=== PATIENT | male | born 1990 | race American Indian/Alaskan Native ===

== ENCOUNTER 2019-05-04 22:33 | Emergency (ER) | payer SELFPAY ==
[2019-05-04 23:49] LABS: Basophils % (Auto) 0.3 % (0.0-1.8); Eosinophils % (Auto) 0.1 % (0.0-4.3); Hematocrit 43.4 % (35.5-45.6); Hemoglobin 14.8 gm/dl (11.8-15.2); Lymphocytes # (Auto) 1.9 K/mm3 (1.2-5.4); Lymphocytes % (Auto) 24.6 % (13.4-35.0); Mean Corpuscular HGB Conc 34 % (32-34); Mean Corpuscular Volume 84 fl (84-94); Monocytes # (Auto) 0.7 K/mm3 (0.0-0.8); Monocytes % (Auto) 9.3 % (0.0-7.3); Platelet Count 231 K/mm3 (140-440); Red Blood Count 5.14 M/mm3 (3.65-5.03); Red Cell Distribution Width 14.5 % (13.2-15.2)
--- NOTE | 2019-05-05 00:03 | Emergency Department Report ---
ED Abdominal Pain HPI - General Chief Complaint: Abdominal Pain Stated Complaint: LOWER LEFT ABDOMINAL PAIN Time Seen by Provider: 05/04/19 23:58 Source: patient Mode of arrival: Ambulatory Limitations: No Limitations - History of Present Illness Initial Comments: Patient is a 29-year-old male that presents to the emergency room with left lower quadrant pain 2 days and nausea vomiting. Patient states she is able to tolerate by mouth fluids but not foods. Patient states his symptoms going on for 2 days. Patient states the left lower quadrant pain is worsening. Patient denies fever and chills. Patient states his pain is not radiating. Patient states his pain is a 7 out of 10. Patient states his pain is better with rest. Patient states his pain is worse with vomiting and eating. MD Complaint: abdominal pain -: Sudden, days(s) (2) Location: LLQ Radiation: none Migration to: no migration Severity: moderate Severity scale (0 -10): 7 Quality: aching Consistency: constant Improves With: rest Worsens With: vomiting, movement Associated Symptoms: nausea, vomiting. denies: diarrhea, fever, chills, constipation, dysuria, hematemesis, hematochezia, melena, hematuria, anorexia, syncope - Related Data Previous Rx's Medication Instructions Recorded Last Taken Type Ciprofloxacin HCl [Ciprofloxacin 500 mg PO Q12HR 10 Days #20 tab 05/05/19 Unknown Rx TAB] Ondansetron [Zofran Odt] 4 mg PO Q8HR PRN #15 tab.rapdis 05/05/19 Unknown Rx metroNIDAZOLE [Flagyl] 500 mg PO Q12HR 10 Days #20 tab 05/05/19 Unknown Rx Allergies Allergy/AdvReac Type Severity Reaction Status Date / Time No Known Allergies Allergy Unverified 05/04/19 23:27 ED Review of Systems ROS: Stated complaint: LOWER LEFT ABDOMINAL PAIN Other details as noted in HPI Constitutional: denies: chills, fever Eyes: denies: eye pain, eye discharge, vision change ENT: denies: ear pain, throat pain Respiratory: denies: cough, shortness of breath, wheezing Cardiovascular: denies: chest pain, palpitations Endocrine: no symptoms reported Gastrointestinal: abdominal pain, nausea, vomiting. denies: diarrhea, constipation, hematemesis, melena, hematochezia Genitourinary: denies: urgency, dysuria Musculoskeletal: denies: back pain, joint swelling, arthralgia Skin: denies: rash, lesions Neurological: denies: headache, weakness, paresthesias Psychiatric: denies: anxiety, depression Hematological/Lymphatic: denies: easy bleeding, easy bruising ED Past Medical Hx - Past Medical History Previous Medical History?: No - Surgical History Past Surgical History?: Yes Additional Surgical History: Right Abdominal hernia, Right arm - Family History Family history: no significant - Social History Smoking Status: Never Smoker Substance Use Type: None - Medications Home Medications: Home Medications Medication Instructions Recorded Confirmed Last Taken Type Ciprofloxacin HCl [Ciprofloxacin 500 mg PO Q12HR 10 Days #20 tab 05/05/19 Unknown Rx TAB] Ondansetron [Zofran Odt] 4 mg PO Q8HR PRN #15 tab.rapdis 05/05/19 Unknown Rx metroNIDAZOLE [Flagyl] 500 mg PO Q12HR 10 Days #20 tab 05/05/19 Unknown Rx ED Physical Exam - General Limitations: No Limitations General appearance: alert, in no apparent distress - Head Head exam: Present: atraumatic, normocephalic - Eye Eye exam: Present: normal appearance - ENT ENT exam: Present: mucous membranes moist - Neck Neck exam: Present: normal inspection - Respiratory Respiratory exam: Present: normal lung sounds bilaterally. Absent: respiratory distress - Cardiovascular Cardiovascular Exam: Present: regular rate, normal rhythm. Absent: systolic murmur, diastolic murmur, rubs, gallop - GI/Abdominal GI/Abdominal exam: Present: soft, tenderness (left lower quadrant tenderness), normal bowel sounds - Rectal Rectal exam: Present: deferred - Extremities Exam Extremities exam: Present: normal inspection - Back Exam Back exam: Present: normal inspection - Neurological Exam Neurological exam: Present: alert, oriented X3 - Psychiatric Psychiatric exam: Present: normal affect, normal mood - Skin Skin exam: Present: warm, dry, intact, normal color. Absent: rash ED Course Vital Signs 05/04/19 05/05/19 05/05/19 22:39 00:15 02:56 Temperature 98.6 F 98.9 F 98 F Pulse Rate 95 H 75 69 Respiratory 18 16 16 Rate Blood Pressure 114/74 Blood Pressure 128/78 102/59 [Left] O2 Sat by Pulse 98 100 100 Oximetry - Reevaluation(s) Reevaluation #1: Discussed all results with patient. Patient is stable for discharge. Patient will be discharged home. Patient agrees to plan of care. Patient given discharge instructions. Patient voiced understanding of discharge instructions. 05/05/19 02:56 Patient tolerated by mouth challenge 05/05/19 03:19 ED Medical Decision Making - Lab Data Result diagrams: 05/04/19 23:36 05/04/19 23:38 - Radiology Data Radiology results: report reviewed PROCEDURE: CT abdomen and pelvis without contrast. TECHNIQUE: Computerized axial tomography of the abdomen and pelvis was performed without intravenous contrast. This study is performed without intravascular contrast material and its sensitivity for abdominal and pelvic pathology, including neoplasms, inflammation, abscess, free fluid, thrombosis, arterial dissection and infarction, is reduced compared with a contrast enhanced study. CT DOSE LENGTH PRODUCT: 523.7 mGycm HISTORY: Abdominal pain. COMPARISONS: None. FINDINGS: The lung bases are clear. There are no pleural effusions. The heart size is normal. The liver, pancreas and spleen are grossly normal. The gallbladder is present. There is no biliary dilatation. The adrenal glands are not enlarged. Both kidneys appear normal in size and configuration. There are no renal calcifications. There is no hydronephrosis. The abdominal aorta has a normal caliber. There is no retroperitoneal adenopathy. The unopacified gastrointestinal tract is unremarkable. A normal appendix is visible. The bladder, seminal vesicles and prostate appear normal. The regional skeleton appears intact. IMPRESSION: Normal unenhanced studies of the abdomen and pelvis. - Medical Decision Making Patient is a 29-year-old male that presents emergency room with complaints of left lower quadrant pain and nausea and vomiting. Patient finding consistent with possible diverticulitis and gastroenteritis. Patient's CT is negative. Patient will be treated for diverticulitis since the patient is so tender in his left lower quadrant. Patient has been stable in the ER. Patient has not had any nausea vomiting in the ER and the patient tolerated a by mouth challenge.. Patient given antibiotics and Zofran. Patient will be discharged home. Patient given discharge instructions. Patient's labs unremarkable. Patient's CT negative. - Differential Diagnosis diverticulitis. Gastroenteritis. Nausea and vomiting. Abdominal pain. Critical care attestation.: If time is entered above; I have spent that time in minutes in the direct care of this critically ill patient, excluding procedure time. ED Disposition Clinical Impression: Left lower quadrant pain, Gastroenteritis Nausea & vomiting Qualifiers: Vomiting type: unspecified Vomiting Intractability: non-intractable Qualified C ode(s): R11.2 - Nausea with vomiting, unspecified Disposition: - TO HOME OR SELFCARE Is pt being admited?: No Does the pt Need Aspirin: No Condition: Stable Instructions: Gastroenteritis (ED), Acute Nausea and Vomiting (ED) Additional Instructions: Patient to follow-up with primary care in 2-3 days. Patient to take Tylenol or ibuprofen when necessary for pain. Patient to return to ER if condition worsens. Patient to take meds as directed. Patient to increase water. Patient to rest. Patient to eat a brat diet Prescriptions: Ciprofloxacin HCl [Ciprofloxacin TAB] 500 mg PO Q12HR 10 Days #20 tab metroNIDAZOLE [Flagyl] 500 mg PO Q12HR 10 Days #20 tab Ondansetron [Zofran Odt] 4 mg PO Q8HR PRN #15 tab.rapdis PRN Reason: Nausea And Vomiting Referrals: [facility] MD MANJU [Primary Care Provider] - 2-3 Days Forms: Work/School Release Form(ED) Time of Disposition: 03:20
[2019-05-05 00:15] LABS: BUN/Creatinine Ratio 13; Blood Urea Nitrogen 13 mg/dL (9-20); Calcium 8.9 mg/dL (8.4-10.2)
[2019-05-05 00:16] LABS: Alanine Aminotransferase 20 units/L (7-56); Hemolysis Index 7
--- NOTE | 2019-05-05 01:26 | Cat Scan Report ---
PROCEDURE: CT abdomen and pelvis without contrast. TECHNIQUE: Computerized axial tomography of the abdomen and pelvis was performed without intravenous contrast. This study is performed without intravascular contrast material and its sensitivity for ab dominal and pelvic pathology, including neoplasms, inflammation, abscess, free fluid, thrombosis, art erial dissection and infarction, is reduced compared with a contrast enhanced study. CT DOSE LENGTH PRODUCT: 523.7 mGycm HISTORY: Abdominal pain. COMPARISONS: None. FINDINGS: The lung bases are clear. There are no pleural effusions. The heart size is normal. The liver, pancre as and spleen are grossly normal. The gallbladder is present. There is no biliary dilatation. The adr enal glands are not enlarged. Both kidneys appear normal in size and configuration. There are no мария l calcifications. There is no hydronephrosis. The abdominal aorta has a normal caliber. There is no r etroperitoneal adenopathy. The unopacified gastrointestinal tract is unremarkable. A normal appendix is visible. The bladder, seminal vesicles and prostate appear normal. The regional skeleton appears i ntact. IMPRESSION: Normal unenhanced studies of the abdomen and pelvis. This document is electronically signed by Bogdan Bonner MD., May 05 2019 01:24:27 AM ET
[2019-05-05 01:31] LABS: Bilirubin,Urine NEG (Negative); Blood,Urine MOD (Negative); Color,Urine Yellow (Yellow); Mucus,Urine FEW /HPF
[2019-05-05 02:56] VITALS: BP 102/59
== END 2019-05-05 03:15 | disposition home or self-care (01) ==
LOC: ED 22:33
DX: K52.9 Noninfective gastroenteritis and colitis, unspecified (principal)
CPT/HCPCS: 36415; 74176; 80053; 81001; 83690; 85025

== ENCOUNTER 2021-04-09 02:25 | Observation (INO) | payer OTHER ==
[2021-04-09] MEDS ORDERED: SODIUM CHLORIDE 0.9% 500 ML 500 ML IV ONE (03:24)
[2021-04-09] MEDS ORDERED: ACETAMINOPHEN 500 MG TAB PO STA (03:24)
[2021-04-09] MEDS ORDERED: PIPERACIL/TAZOBACTA 4.5/NS 100 4.5 GM/100 ML VIAL IV ONE (03:38)
[2021-04-09] MEDS ORDERED: SODIUM CHLORIDE 0.9% 1000 ML IV SOLN IV ONE (03:38)
--- NOTE | 2021-04-09 03:43 | Emergency Department Report ---
ED Abdominal Pain HPI - General Chief Complaint: Abdominal Pain Stated Complaint: SHARP ABDOMINAL PAIN EVERY 45MINS PUI?: No Time Seen by Provider: 04/09/21 03:38 Source: patient Mode of arrival: Ambulatory Limitations: No Limitations - History of Present Illness Initial Comments: Patient is a 31-year-old male who presents emergency room with complaints of fever and abdominal pain. Patient states it started about an hour ago. Patient states that the symptoms are worsening. Patient states the abdominal pain is a 6 out of 10. Patient states the abdominal pain is better with rest and worse with movement. Patient denies nausea and vomiting. Patient states the abdominal pain is periumbilical. Patient denies constipation. Patient denies diarrhea. Patient denies cough. Patient states that he had some recent dental work done for a oral infection and started amoxicillin yesterday. Patient denies recent travel. Patient denies recent international travel. Patient denies exposure to the novel coronavirus. Patient denies sick contacts. Patient denies cough. Patient denies diarrhea. Patient denies coming in contact with anybody with symptoms of the novel coronavirus. Code sepsis called in triage. MD Complaint: abdominal pain - Related Data Previous Rx's Medication Instructions Recorded Last Taken Type Ciprofloxacin HCl [Ciprofloxacin 500 mg PO Q12HR 10 Days #20 tab 05/05/19 Unknown Rx TAB] Ondansetron [Zofran Odt] 4 mg PO Q8HR PRN #15 tab.rapdis 05/05/19 Unknown Rx metroNIDAZOLE [Flagyl] 500 mg PO Q12HR 10 Days #20 tab 05/05/19 Unknown Rx Allergies Allergy/AdvReac Type Severity Reaction Status Date / Time No Known Allergies Allergy Unverified 05/04/19 23:27 ED Review of Systems ROS: Stated complaint: SHARP ABDOMINAL PAIN EVERY 45MINS Other details as noted in HPI Constitutional: see HPI, chills, fever Eyes: denies: eye pain, eye discharge, vision change ENT: denies: ear pain, throat pain Respiratory: denies: cough, shortness of breath, wheezing Cardiovascular: denies: chest pain, palpitations Endocrine: no symptoms reported Gastrointestinal: as per HPI, abdominal pain. denies: nausea, diarrhea Genitourinary: denies: urgency, dysuria Musculoskeletal: denies: back pain, joint swelling, arthralgia Skin: denies: rash, lesions Neurological: denies: headache, weakness, paresthesias Psychiatric: denies: anxiety, depression Hematological/Lymphatic: denies: easy bleeding, easy bruising ED Past Medical Hx - Past Medical History Previous Medical History?: Yes Hx HIV: Yes - Surgical History Past Surgical History?: No Additional Surgical History: Right Abdominal hernia, Right arm - Family History Family history: no significant - Social History Smoking Status: Never Smoker Substance Use Type: None - Medications Home Medications: Home Medications Medication Instructions Recorded Confirmed Last Taken Type Ciprofloxacin HCl [Ciprofloxacin 500 mg PO Q12HR 10 Days #20 tab 05/05/19 Unknown Rx TAB] Ondansetron [Zofran Odt] 4 mg PO Q8HR PRN #15 tab.rapdis 05/05/19 Unknown Rx metroNIDAZOLE [Flagyl] 500 mg PO Q12HR 10 Days #20 tab 05/05/19 Unknown Rx ED Physical Exam - General Limitations: No Limitations General appearance: alert, in no apparent distress - Head Head exam: Present: atraumatic, normocephalic - Eye Eye exam: Present: normal appearance - ENT ENT exam: Present: mucous membranes moist - Neck Neck exam: Present: normal inspection - Respiratory Respiratory exam: Present: normal lung sounds bilaterally. Absent: respiratory distress - Cardiovascular Cardiovascular Exam: Present: regular rate, normal rhythm. Absent: systolic murmur, diastolic murmur, rubs, gallop - GI/Abdominal GI/Abdominal exam: Present: soft, tenderness, normal bowel sounds. Absent: distended, guarding - Rectal Rectal exam: Present: deferred - Extremities Exam Extremities exam: Present: normal inspection - Back Exam Back exam: Present: normal inspection - Neurological Exam Neurological exam: Present: alert, oriented X3 - Psychiatric Psychiatric exam: Present: normal affect, normal mood - Skin Skin exam: Present: warm, dry, intact, normal color. Absent: rash ED Course Vital Signs 04/09/21 04/09/21 04/09/21 03:16 03:57 04:00 Temperature 102.6 F H Pulse Rate 111 H 101 H 95 H Respiratory 17 Rate Blood Pressure 114/64 Blood Pressure 114/56 [Right] O2 Sat by Pulse 96 Oximetry 04/09/21 04/09/21 04/09/21 04:03 04:16 04:30 Temperature Pulse Rate 90 85 Respiratory 18 Rate Blood Pressure 114/64 114/64 Blood Pressure [Right] O2 Sat by Pulse 99 Oximetry 04/09/21 04/09/21 04/09/21 04:46 05:00 05:32 Temperature Pulse Rate 84 87 78 Respiratory Rate Blood Pressure 114/64 115/58 Blood Pressure [Right] O2 Sat by Pulse Oximetry 04/09/21 05:46 Temperature Pulse Rate 86 Respiratory Rate Blood Pressure Blood Pressure [Right] O2 Sat by Pulse Oximetry - Reevaluation(s) Reevaluation #1: Patient vital signs stable. Patient's heart is improved. Patient's fever has improved. 04/09/21 04:08 Reevaluation #2: I discussed all results with patient. I discussed plan of care with patient. Patient agrees with plan of care and admission. Patient to be admitted to the hospitalist service. 04/09/21 06:28 - Consultations Consultation #1: I discussed the case with Dr. Dee, general surgery. Dr. Dee recommends admission and n.p.o. and he will see the patient. 04/09/21 06:16 Consultation #2: Hospitalist consulted for admission. Hospitalist to admit patient. 04/09/21 06:17 ED Medical Decision Making - Lab Data Result diagrams: 04/09/21 04:27 04/09/21 04:27 - EKG Data -: EKG Interpreted by Me EKG shows normal: sinus rhythm, axis, intervals, QRS complexes, ST-T waves Rate: normal - Radiology Data Radiology results: report reviewed, image reviewed interpreted by me: Chest x-ray: No pneumonia, no pneumothorax, no foreign body, no osseous findings, no acute findings CT ABDOMEN AND PELVIS WITH CONTRAST INDICATION / CLINICAL INFORMATION: Patient complains of abdominal pain. TECHNIQUE: Axial CT images were obtained through the abdomen and pelvis after 100 cc Omnipaque [address] scans at this location are performed using CT dose reduction for ALARA by means of automated exposure control. COMPARISON: CT abdomen and pelvis without contrast from 05/05/2019. FINDINGS: LOWER CHEST: No significant abnormality. LIVER: No significant abnormality. GALLBLADDER: No significant abnormality. BILE DUCTS: No significant abnormality. PANCREAS: No significant abnormality. SPLEEN: No significant abnormality. ADRENALS: No significant abnormality. RIGHT KIDNEY / URETER: No significant abnormality. LEFT KIDNEY / URETER: No significant abnormality. STOMACH / SMALL BOWEL: No significant abnormality. COLON: No significant abnormality. APPENDIX: The appendix is dilated, measuring 10 mm in transverse diameter, with mild thickening. No significant surrounding inflammation or appendicolith is seen. PERITONEUM: No free fluid. No free air. No fluid collection. LYMPH NODES: Shotty mesenteric nodes are again seen along the right lower quadrant. No other significant adenopathy. AORTA / ARTERIES: No significant abnormality. IVC / VEINS: No significant abnormality. URINARY BLADDER: No significant abnormality. REPRODUCTIVE ORGANS: No significant abnormality. ADDITIONAL FINDINGS: None. SKELETAL SYSTEM: No significant abnormality. IMPRESSION: Nonspecific appearance of the appendix as above could represent an early appendicitis. The appendix versus similarly prominent on the prior CT. Please correlate with the clinical findings. - Medical Decision Making Patient is a 31-year-old male who presents emergency room with complaints of fever and abdominal pain. Patient had a sepsis protocol initiated in triage. Patient was given early antibiotics in early fluid boluses. Patient had labs do ne which were essentially unremarkable. Patient had a chest x-ray which was negative for acute finding. I personally reviewed the chest x-ray. Patient had a CT scan of the abdomen which shows an early appendicitis. I discussed the case with general surgery general surgery gave recommendations. Patient admitted to the hospital service for further evaluation and treatment. Patient made n.p.o. Critical care time documented due to the multiple reassessments, prolonged time at the bedside, interpretation of diagnostics and labs and discussion with consultants.. - Differential Diagnosis Abdominal pain, fever, sepsis, Sirs, appendicitis, Critical Care Time: Yes Critical care time in (mins) excluding proc time.: 35 Critical care attestation.: If time is entered above; I have spent that time in minutes in the direct care of this critically ill patient, excluding procedure time. Critical Care Time: 35 minutes ED Disposition Clinical Impression: Fever Qualifiers: Fever type: unspecified Qualified Code(s): R50.9 - Fever, unspecified Abdominal pain Qualifiers: Abdominal location: periumbilical Qualified Code(s): R10.33 - Periumbilical pain Appendicitis Qualifiers: Appendicitis type: acute appendicitis Acute appendicitis type: unspecified acute appendicitis type Qualified Code(s): K35.80 - Unspecified acute appendicitis Disposition: DC-09 OP ADMIT IP TO THIS HOSP Is pt being admited?: Yes Does the pt Need Aspirin: No Condition: Critical Time of Disposition: 06:27
--- NOTE | 2021-04-09 04:16 | XRay Report ---
CHEST 1 VIEW 04/09/2021 2:56 AM INDICATION / CLINICAL INFORMATION: possible Sepsis. COMPARISON: None available. FINDINGS: SUPPORT DEVICES: None. HEART / MEDIASTINUM: No significant abnormality. LUNGS / PLEURA: Clear lungs. No significant pleural effusion. No pneumothorax. ADDITIONAL FINDINGS: No significant additional findings. IMPRESSION: 1. No acute abnormality of the chest. Signer Name: Jalil Gresham MD Signed: 04/09/2021 4:11 AM Workstation Name: [id number]
[2021-04-09 04:39] LABS: Hematocrit 37.6 % (35.5-45.6); Hemoglobin 13.2 gm/dl (11.8-15.2); Mean Corpuscular HGB Conc 35 % (32-34); Mean Corpuscular Volume 83 fl (84-94); Platelet Count 207 K/mm3 (140-440); Red Blood Count 4.52 M/mm3 (3.65-5.03); Red Cell Distribution Width 13.8 % (13.2-15.2)
[2021-04-09 04:48] LABS: INR 1.13 (0.87-1.13)
[2021-04-09 05:00] LABS: Alanine Aminotransferase 11 units/L (7-56); Albumin 3.2 g/dL (3.9-5); BUN/Creatinine Ratio 16; Blood Urea Nitrogen 16 mg/dL (9-20); Calcium 8.3 mg/dL (8.4-10.2); Hemolysis Index 0
[2021-04-09 05:15] LABS: Band Neutrophils # (Manual) 0.1 K/mm3; RBC Morphology Normal; Total Cells Counted 100; Toxic Granulation Few; Toxic Vacuolation Few
[2021-04-09 05:16] LABS: Platelet Estimate Consistent w Auto
--- NOTE | 2021-04-09 05:43 | Cat Scan Report ---
CT ABDOMEN AND PELVIS WITH CONTRAST INDICATION / CLINICAL INFORMATION: Patient complains of abdominal pain. TECHNIQUE: Axial CT images were obtained through the abdomen and pelvis after 100 cc Omnipaque [address] scans at this location are performed using CT dose reduction for ALARA by means of automated exposure control. COMPARISON: CT abdomen and pelvis without contrast from 05/05/2019. FINDINGS: LOWER CHEST: No significant abnormality. LIVER: No significant abnormality. GALLBLADDER: No significant abnormality. BILE DUCTS: No significant abnormality. PANCREAS: No significant abnormality. SPLEEN: No significant abnormality. ADRENALS: No significant abnormality. RIGHT KIDNEY / URETER: No significant abnormality. LEFT KIDNEY / URETER: No significant abnormality. STOMACH / SMALL BOWEL: No significant abnormality. COLON: No significant abnormality. APPENDIX: The appendix is dilated, measuring 10 mm in transverse diameter, with mild thickening. No s ignificant surrounding inflammation or appendicolith is seen. PERITONEUM: No free fluid. No free air. No fluid collection. LYMPH NODES: Shotty mesenteric nodes are again seen along the right lower quadrant. No other signific ant adenopathy. AORTA / ARTERIES: No significant abnormality. IVC / VEINS: No significant abnormality. URINARY BLADDER: No significant abnormality. REPRODUCTIVE ORGANS: No significant abnormality. ADDITIONAL FINDINGS: None. SKELETAL SYSTEM: No significant abnormality. IMPRESSION: Nonspecific appearance of the appendix as above could represent an early appendicitis. The appendix v ersus similarly prominent on the prior CT. Please correlate with the clinical findings. Signer Name: Jalil Gresham MD Signed: 04/09/2021 5:39 AM Workstation Name: [id number]
--- NOTE | 2021-04-09 07:59 | History and Physical Report ---
History of Present Illness Date of examination: 04/09/21 Date of admission: 04/09/21 06:29 Chief complaint: Acute abdominal pain History of present illness: 31-year-old -French male with past medical history of HIV presents with acutesubacute abdominal pain. Patient's had intermittent subacute abdominal pain for the past 4 days. 8/10 pain, dull pain, intermittent, around umbilical area, nonradiating. Patient reports having nausea, bilious, no hematemesis. Patient has had diarrhea, no hematochezia or melena. Patient noted to have a fever earlier this morning measured to be 103 F. Patient has been on amoxicillin for recent tooth extraction, 3 teeth pulled. No other complications pertaining to the diagnosis. Patient is HIV positive, states he takes Biktarvy daily. Past History Past Medical History: other (HIV positive) Past Surgical History: Other (Tooth extraction) Social history: other (Drinks 2-3 alcoholic beverages per week, denies smoking cigarettes, denies illicit drug use) Family history: other (Diabetes mellitus type 2) Medications and Allergies Allergies Allergy/AdvReac Type Severity Reaction Status Date / Time No Known Allergies Allergy Unverified 05/04/19 23:27 Home Medications Medication Instructions Recorded Confirmed Last Taken Type Bictegrav/Emtricit/Tenofov Ala 1 tab PO DAILY 04/09/21 04/09/21 1 Day Ago History [Biktarvy 50-200-25 mg (Nf)] ~04/08/21 Active Meds: Active Medications Acetaminophen (Acetaminophen 325 Mg Tab) 650 mg PO Q4H PRN PRN Reason: Pain MILD(1-3)/Fever >100.5/LEMUS Hydromorphone HCl (Hydromorphone 1 Mg/1 Ml Inj) 0.5 mg IV Q3H PRN PRN Reason: Pain , Severe (7-10) Sodium Chloride (Nacl 0.9% 1000 Ml) 1,000 mls @ 100 mls/hr IV DIRECT MARIO ALBERTO Piperacillin Sod/Tazobactam Sod (Zosyn/Ns 3.375gm/50ml) 3.375 gm in 50 mls @ 100 mls/hr IV Q8H MARIO ALBERTO; Protocol Morphine Sulfate (Morphine 2 Mg/1 Ml Inj) 2 mg IV Q4H PRN PRN Reason: Pain, Moderate (4-6) Naloxone HCl (Naloxone 0.4 Mg/1 Ml Inj) 0.1 mg IV Q2MIN PRN PRN Reason: Res Rate </= 8 or 02 SAT < 92% Ondansetron HCl (Ondansetron 4 Mg/2 Ml Inj) 4 mg IV Q8H PRN PRN Reason: Nausea And Vomiting Sodium Chloride (Sodium Chloride 0.9% 10 Ml Flush Syringe) 10 ml IV BID MARIO ALBERTO Sodium Chloride (Sodium Chloride 0.9% 10 Ml Flush Syringe) 10 ml IV PRN PRN PRN Reason: LINE FLUSH Review of Systems Constitutional: fever, chills, no weight loss, no weight gain, no fatigue, no weakness, no malaise, no lethargy Ears, nose, mouth and throat: dental pain, mouth pain, no nose pain, no sinus pressure, no sinus pain, no dysphagia, no hoarseness, no sore throat, no swelling in throat, no odynophagia, no post-nasal drip Cardiovascular: no chest pain, no orthopnea, no palpitations, no rapid/irregular heart beat, no edema, no syncope, no shortness of breath, no dyspnea on exertion, no high blood pressure Gastrointestinal: abdominal pain, nausea, vomiting, diarrhea, no constipation, no change in bowel habits, no hematemesis, no BRBPR, no hematochezia, no heartburn, no indigestion, no dyspepsia/bloating, no early satiety Musculoskeletal: no neck stiffness, no neck pain, no arm numbness/tingling, no low back pain, no shooting leg pain, no redness of joints, no hot joints, no muscle weakness, no muscle cramps, no myalgias, no limitation of motion Integumentary: no rash, no pruritis, no redness, no wounds, no jaundice, no boils, no blisters Neurological: no head injury, no weakness, no parathesias, no numbness, no tingling, no syncope, no tremors, no ataxia, no gait dysfunction, no motor disturbance, no sensory deficit Psychiatric: no anxiety, no memory loss, no change in sleep habits, no sleep disturbances, no insomnia, no change in appetite, no depression, no anxiety attacks, no confusion Hematologic/Lymphatic: no easy bruising, no easy bleeding, no lymphadenopathy, no lymphedema Allergic/Immunologic: no allergic rhinitis, no wheezing, no persistent infections, no anaphylaxis Exam - Physical Exam Narrative exam: General appearance: no acute distress, well-nourished EENT: PERRL, EOM intact, hearing intact, clear oral mucosa Neck: Present: supple, normal ROM Respiratory: bilateral CTA, negative: rales, rhonchi, wheezing Cardiovascular: Regular rate/rhythm, Normal S1 & S2. No gallop, rub Extremities: no ischemia, No edema, normal temperature, normal color, Full ROM Abdominal: soft, no tenderness in right lower quadrant, no tenderness around periumbilical area, non-distended, normal bowel sounds Integumentary: Present: clear, warm, dry no wounds, no erythema noted Psychiatric: appropriate mood/affect, intact judgment & insight Neurologic: CNII-XII intact, moves all extremities, no sensory or motor abnormalities - Constitutional Vitals: Temp Pulse Resp BP Pulse Ox 98.8 F 73 20 119/74 96 04/09/21 06:50 04/09/21 06:50 04/09/21 06:50 04/09/21 06:50 04/09/21 06:50 Results - Labs CBC & Chem 7: 04/09/21 04:27 04/09/21 04:27 Labs: Laboratory Last Values WBC 8.6 K/mm3 (4.5-11.0) 04/09/21 04:27 RBC 4.52 M/mm3 (3.65-5.03) 04/09/21 04:27 Hgb 13.2 gm/dl (11.8-15.2) 04/09/21 04:27 Hct 37.6 % (35.5-45.6) 04/09/21 04:27 MCV 83 fl (84-94) L 04/09/21 04:27 MCH 29 pg (28-32) 04/09/21 04:27 MCHC 35 % (32-34) H 04/09/21 04:27 RDW 13.8 % (13.2-15.2) 04/09/21 04:27 Plt Count 207 K/mm3 (140-440) 04/09/21 04:27 Add Manual Diff Complete 04/09/21 04:27 Total Counted 100 04/09/21 04:27 Seg Neuts % (Manual) 78.0 % (40.0-70.0) H 04/09/21 04:27 Band Neutrophils % 1.0 % 04/09/21 04:27 Lymphocytes % (Manual) 16.0 % (13.4-35.0) 04/09/21 04:27 Monocytes % (Manual) 5.0 % (0.0-7.3) 04/09/21 04:27 Nucleated RBC % Not Reportable 04/09/21 04:27 Seg Neutrophils # Man 6.7 K/mm3 (1.8-7.7) 04/09/21 04:27 Band Neutrophils # 0.1 K/mm3 04/09/21 04:27 Lymphocytes # (Manual) 1.4 K/mm3 (1.2-5.4) 04/09/21 04:27 Abs React Lymphs (Man) 0.0 K/mm3 04/09/21 04:27 Monocytes # (Manual) 0.4 K/mm3 (0.0-0.8) 04/09/21 04:27 Eosinophils # (Manual) 0.0 K/mm3 (0.0-0.4) 04/09/21 04:27 Basophils # (Manual) 0.0 K/mm3 (0.0-0.1) 04/09/21 04:27 Metamyelocytes # 0.0 K/mm3 04/09/21 04:27 Myelocytes # 0.0 K/mm3 04/09/21 04:27 Promyelocytes # 0.0 K/mm3 04/09/21 04:27 Blast Cells # 0.0 K/mm3 04/09/21 04:27 WBC Morphology Not Reportable 04/09/21 04:27 Hypersegmented Neuts Not Reportable 04/09/21 04:27 Hyposegmented Neuts Not Reportable 04/09/21 04:27 Hypogranular Neuts Not Reportable 04/09/21 04:27 Smudge Cells Not Reportable 04/09/21 04:27 Toxic Granulation Few 04/09/21 04:27 Toxic Vacuolation Few 04/09/21 04:27 Dohle Bodies Not Reportable 04/09/21 04:27 Pelger-Huet Anomaly Not Reportable 04/09/21 04:27 Aleena Rods Not Reportable 04/09/21 04:27 Platelet Estimate Consistent w auto 04/09/21 04:27 Clumped Platelets Not Reportable 04/09/21 04:27 Plt Clumps, EDTA Not Reportable 04/09/21 04:27 Large Platelets Not Reportable 04/09/21 04:27 Giant Platelets Not Reportable 04/09/21 04:27 Platelet Satelliting Not Reportable 04/09/21 04:27 Plt Morphology Comment Not Reportable 04/09/21 04:27 RBC Morphology Normal 04/09/21 04:27 Dimorphic RBCs Not Reportable 04/09/21 04:27 Polychromasia Not Reportable 04/09/21 04:27 Hypochromasia Not Reportable 04/09/21 04:27 Poikilocytosis Not Reportable 04/09/21 04:27 Anisocytosis Not Reportable 04/09/21 04:27 Microcytosis Not Reportable 04/09/21 04:27 Macrocytosis Not Reportable 04/09/21 04:27 Spherocytes Not Reportable 04/09/21 04:27 Pappenheimer Bodies Not Reportable 04/09/21 04:27 Sickle Cells Not Reportable 04/09/21 04:27 Target Cells Not Reportable 04/09/21 04:27 Tear Drop Cells Not Reportable 04/09/21 04:27 Ovalocytes Not Reportable 04/09/21 04:27 Helmet Cells Not Reportable 04/09/21 04:27 [place] Bodies Not Reportable 04/09/21 04:27 [place] Rings Not Reportable 04/09/21 04:27 [place] Cells Not Reportable 04/09/21 04:27 Bite Cells Not Reportable 04/09/21 04:27 Crenated Cell Not Reportable 04/09/21 04:27 Elliptocytes Not Reportable 04/09/21 04:27 Acanthocytes (Spur) Not Reportable 04/09/21 04:27 Rouleaux Not Reportable 04/09/21 04:27 Hemoglobin C Crystals Not Reportable 04/09/21 04:27 Schistocytes Not Reportable 04/09/21 04:27 Malaria parasites Not Reportable 04/09/21 04:27 Matias Bodies Not Reportable 04/09/21 04:27 Hem Pathologist Commnt No 04/09/21 04:27 PT 14.3 Sec. (12.2-14.9) 04/09/21 04:27 INR 1.13 (0.87-1.13) 04/09/21 04:27 VBG pH 7.391 (7.320-7.420) 04/09/21 04:27 Sodium 132 mmol/L (137-145) L 04/09/21 04:27 Potassium 3.4 mmol/L (3.6-5.0) L 04/09/21 04:27 Chloride 96.3 mmol/L (98-107) L 04/09/21 04:27 Carbon Dioxide 25 mmol/L (22-30) 04/09/21 04:27 Anion Gap 14 mmol/L 04/09/21 04:27 BUN 16 mg/dL (9-20) 04/09/21 04:27 Creatinine 1.0 mg/dL (0.8-1.3) 04/09/21 04:27 Estimated GFR > 60 ml/min 04/09/21 04:27 BUN/Creatinine Ratio 16 % 04/09/21 04:27 Glucose 92 mg/dL (75-100) 04/09/21 04:27 Lactic Acid 0.90 mmol/L (0.7-2.0) 04/09/21 04:27 Calcium 8.3 mg/dL (8.4-10.2) L 04/09/21 04:27 Total Bilirubin 0.50 mg/dL (0.1-1.2) 04/09/21 04:27 AST 21 units/L (5-40) 04/09/21 04:27 ALT 11 units/L (7-56) 04/09/21 04:27 Alkaline Phosphatase 82 units/L (35-129) 04/09/21 04:27 Total Protein 9.1 g/dL (6.3-8.2) H 04/09/21 04:27 Albumin 3.2 g/dL (3.9-5) L 04/09/21 04:27 Albumin/Globulin Ratio 0.5 % 04/09/21 04:27 - Imaging and Cardiology EKG: report reviewed Chest x-ray: report reviewed CT scan - abdomen: report reviewed Assessment and Plan Assessment and plan: 31-year-old -French male with past medical history of HIV presents with abdominal pain secondary to early acute appendicitis Early acute appendicitis Report of the CT of the abdomen reviewed General surgery consulted Patient n.p.o. Patient started on Zosyn antibiotics Pain control Zofran for nausea IV normal saline fluids Sepsis secondary to intra-abdominal infection Blood cultures pending Urine cultures pending Fluid boluses given Zosyn antibiotics Hypovolemic hyponatremia IV normal saline Hypochloremia Secondary to nausea and vomiting IV normal saline Hypokalemia Replete as needed Chronic HIV infection Hold Biktarvy medications since patient is n.p.o. at this time CODE STATUS: Full DVT prophylaxis: SCDs Disposition: Anticipate less than 2 midnight stay, awaiting surgical consultation Advance Directives: Yes VTE prophylaxis?: Mechanical
[2021-04-09] MEDS ORDERED: ONDANSETRON 4 MG/2 ML INJ IV PRN (08:00)
[2021-04-09] MEDS ORDERED: HYDROmorphone 1 MG/1 ML INJ IV PRN (08:00)
[2021-04-09] MEDS ORDERED: ACETAMINOPHEN 325 MG TAB PO PRN (08:00)
[2021-04-09] MEDS ORDERED: NALOXONE 0.4 MG/1 ML INJ IV PRN (08:00)
[2021-04-09] MEDS: SODIUM CHLORIDE 0.9% 1000 ML 1,000 ML IV SCH ×4 (08:50→22:59)
[2021-04-09 08:58] LABS: Bilirubin,Urine NEG (Negative); Blood,Urine NEG (Negative); Color,Urine Yellow (Yellow); Mucus,Urine FEW /HPF; Protein,Urine <15 mg/dL mg/dL (Negative); Urobilinogen,Urine < 2.0 mg/dL (<2.0)
[2021-04-09] MEDS: POTASSIUM CHLORIDE 10 MEQ 10 MEQ/100 ML BAG IV SCH ×2 (09:15→10:21)
--- NOTE | 2021-04-09 10:52 | Electrocardiograph Report ---
[facility] Test Date: 2021-04-09 Test Time: 03:45:32 Pat Name: GALE POWER Department: Room: A378 1 Gender: M [employer]: RAYSHAWN : 1990 Requested By: SAL MAYA III Order Number: [id number] Reading MD: Brian Guzman Measurements Intervals [place] Rate: 88 P: 61 NC: 145 QRS: 35 QRSD: 87 T: -22 QT: 334 QTc: 405 Interpretive Statements Sinus rhythm nonspecific st-t No previous ECG available for comparison Electronically Signed On 04-09-2021 10:52:27 EDT by Brian Guzman
[2021-04-09] MEDS ORDERED: PIPERACILLIN/TAZOBACTAM 3.375 3.375 GM/50 ML BAG IV SCH (12:00)
--- NOTE | 2021-04-09 14:45 | Anesthesia Consultation ---
Anesthesia Consult and Med Hx Date of service: 04/09/21 - Airway Anesthetic Teeth Evaluation: Good (had tooth extraction 04/06/21) ROM Head & Neck: Adequate Mental/Hyoid Distance: Adequate Mallampati Class: Class II Intubation Access Assessment: Probably Good - Pre-Operative Health Status ASA Pre-Surgery Classification: ASA2 Proposed Anesthetic Plan: General - Central Nervous System Hx Neuromuscular Disorder: No (HIV positive) - Gastrointestinal Hx Gastroesophageal Reflux Disease: No (acute appendicitis) - Other Systems Hx Cancer: No
--- NOTE | 2021-04-09 14:46 | Anesthesia Day of Surgery ---
Anesthesia Day of Surgery - Day of Surgery Patient Examined: Yes Patient H&P Reviewed: Yes Patient is NPO: Yes
[2021-04-09] MEDS ORDERED: BUPIVACAINE/PF (0.5%) 5 MG/1 ML 30 ML VIAL INFILTRATI ONE (15:29)
[2021-04-09] MEDS ORDERED: LIDOCAINE 1%/EPINEPHRINE 1:100,000 VIAL (20 ML) INFILTRATI ONE (15:47)
[2021-04-09] MEDS ORDERED: fentaNYL 100 MCG/2 ML INJ ONE (15:51)
[2021-04-09] MEDS ORDERED: propofoL 200 MG/20 ML VIAL IV ONE (15:52)
[2021-04-09] MEDS ORDERED: LIDOCAINE MPF (2%) 20 MG/1 ML VIAL 5 ML ONE (15:54)
[2021-04-09] MEDS ORDERED: SUCCINYLCHOLINE CHLORIDE 200 MG/10 ML INJ MDV ONE (15:54)
[2021-04-09] MEDS ORDERED: ROCURONIUM 50 MG/5 ML INJ IV ONE (15:55)
[2021-04-09] MEDS ORDERED: ONDANSETRON 4 MG/2 ML INJ ONE (15:55)
[2021-04-09] MEDS: MORPHINE 2 MG/1 ML INJ IV PRN ×2 (15:59→22:59)
[2021-04-09] MEDS ORDERED: dexAMETHasone 20 MG/5 ML VIAL ONE (16:08)
[2021-04-09] MEDS: PIPERACILLIN/TAZOBACTAM 3.375 3.375 GM/50 ML BAG IV SCH ×2 (17:35→23:00)
--- NOTE | 2021-04-09 18:08 | Consultation ---
History of Present Illness Consult date: 04/09/21 Reason for consult: abdominal pain - History of present illness History of present illness: 31 yo HIV + male with a several day h/o RLQ pain, nausea and vomiting. He has had similar symptoms in the past. He feels much better now c/w ER presentation. Past History Past Medical History: other (HIV positive) Past Surgical History: Other (Tooth extraction) Social history: other (Drinks 2-3 alcoholic beverages per week, denies smoking cigarettes, denies illicit drug use) Family history: other (Diabetes mellitus type 2) Medications and Allergies Allergies Allergy/AdvReac Type Severity Reaction Status Date / Time No Known Allergies Allergy Unverified 05/04/19 23:27 Home Medications Medication Instructions Recorded Confirmed Last Taken Type Amoxicillin [Trimox CAP] 500 mg PO Q8H 04/09/21 04/09/21 04/06/21 History Bictegrav/Emtricit/Tenofov Ala 1 tab PO DAILY 04/09/21 04/09/21 1 Day Ago History [Biktarvy 50-200-25 mg (Nf)] ~04/08/21 Active Meds: Active Medications Acetaminophen (Acetaminophen 325 Mg Tab) 650 mg PO Q4H PRN PRN Reason: Pain MILD(1-3)/Fever >100.5/LEMUS Emtricitabine (Emtricitabine 200 Mg Cap) 200 mg PO QDAY MARIO ALBERTO Hydromorphone HCl (Hydromorphone 1 Mg/1 Ml Inj) 0.5 mg IV Q3H PRN PRN Reason: Pain , Severe (7-10) Sodium Chloride (Nacl 0.9% 1000 Ml) 1,000 mls @ 100 mls/hr IV DIRECT MARIO ALBERTO Last Admin: 04/09/21 12:08 Dose: 100 mls/hr Documented by: Piperacillin Sod/Tazobactam Sod (Zosyn/Ns 3.375gm/50ml) 3.375 gm in 50 mls @ 100 mls/hr IV Q6H MARIO ALBERTO; Protocol Last Admin: 04/09/21 17:35 Dose: 100 mls/hr Documented by: Morphine Sulfate (Morphine 2 Mg/1 Ml Inj) 2 mg IV Q4H PRN PRN Reason: Pain, Moderate (4-6) Last Admin: 04/09/21 15:59 Dose: 2 mg Documented by: Naloxone HCl (Naloxone 0.4 Mg/1 Ml Inj) 0.1 mg IV Q2MIN PRN PRN Reason: Res Rate </= 8 or 02 SAT < 92% Ondansetron HCl (Ondansetron 4 Mg/2 Ml Inj) 4 mg IV Q8H PRN PRN Reason: Nausea And Vomiting Sodium Chloride (Sodium Chloride 0.9% 10 Ml Flush Syringe) 10 ml IV BID [facility] Last Admin: 04/09/21 09:15 Dose: 10 ml Documented by: Sodium Chloride (Sodium Chloride 0.9% 10 Ml Flush Syringe) 10 ml IV PRN PRN PRN Reason: LINE FLUSH Tenofovir Disoproxil Fumarate (Tenofovir 300 Mg Tab) 300 mg PO QDAY [facility] Review of Systems All systems: negative (none) Exam Vital Signs Temp Pulse Resp BP Pulse Ox 102.6 F H 111 H 17 114/56 96 04/09/21 03:16 04/09/21 03:16 04/09/21 03:16 04/09/21 03:16 04/09/21 03:16 - General physical appearance Positive: well developed, well nourished, no distress - Eyes Positive: PERRL, normal occular movement - ENT Positive: normal pinna, normal nares, normal mucosa, no hearing loss, no congestion - Neck Positive: no masses, no bruits, trachea midline, no venous distension - Respiratory Positive: normal expansion, normal respiratory effort, clear to auscultation - Cardiovascular Rhythm: regular Heart Sounds: Present: S1 & S2. Absent: rub, click - Extremities Extremities: no ischemia, pulses symmetrical, No edema - Breasts Breasts: normal, no mass, no skin changes - Abdomen Abdomen: Present: soft, bowel sounds normal. Absent: tender, distended Hernia: none - Genitourinary Male Genitourinary: normal Female Genitourinary: normal - Integumentary no rash, no growths, no abnormal pigmentation - Neurologic Neurologic: alert and oriented to time, place and person, motor strength and sensation are grossly intact - Musculoskeletal normal gait, normal posture - Psychiatric Psychiatric: appropriate mood/affect, intact judgment & insight Results - Labs 04/09/21 04:27 04/09/21 04:27 Abnormal lab results 04/09/21 04/09/21 04/09/21 Range/Units 04:27 04:27 08:40 MCV 83 L (84-94) fl MCHC 35 H (32-34) % Seg Neuts % (Manual) 78.0 H (40.0-70.0) % Sodium 132 L (137-145) mmol/L Potassium 3.4 L (3.6-5.0) mmol/L Chloride 96.3 L (98-107) mmol/L Lactic Acid (0.7-2.0) mmol/L Calcium 8.3 L (8.4-10.2) mg/dL Total Protein 9.1 H (6.3-8.2) g/dL Albumin 3.2 L (3.9-5) g/dL Ur Specific [place] > 1.059 H (1.003-1.030) 04/09/21 Range/Units 14:13 MCV (84-94) fl MCHC (32-34) % Seg Neuts % (Manual) (40.0-70.0) % Sodium (137-145) mmol/L Potassium (3.6-5.0) mmol/L Chloride (98-107) mmol/L Lactic Acid 0.60 L (0.7-2.0) mmol/L Calcium (8.4-10.2) mg/dL Total Protein (6.3-8.2) g/dL Albumin (3.9-5) g/dL Ur Specific [place] (1.003-1.030) Diabetes panel 04/09/21 Range/Units 04:27 Sodium 132 L (137-145) mmol/L Potassium 3.4 L (3.6-5.0) mmol/L Chloride 96.3 L (98-107) mmol/L Carbon Dioxide 25 (22-30) mmol/L BUN 16 (9-20) mg/dL Creatinine 1.0 (0.8-1.3) mg/dL Glucose 92 (75-100) mg/dL Calcium 8.3 L (8.4-10.2) mg/dL AST 21 (5-40) units/L ALT 11 (7-56) units/L Alkaline Phosphatase 82 (35-129) units/L Total Protein 9.1 H (6.3-8.2) g/dL Albumin 3.2 L (3.9-5) g/dL Calcium panel 04/09/21 Range/Units 04:27 Calcium 8.3 L (8.4-10.2) mg/dL Albumin 3.2 L (3.9-5) g/dL Pituitary panel 04/09/21 Range/Units 04:27 Sodium 132 L (137-145) mmol/L Potassium 3.4 L (3.6-5.0) mmol/L Chloride 96.3 L (98-107) mmol/L Carbon Dioxide 25 (22-30) mmol/L BUN 16 (9-20) mg/dL Creatinine 1.0 (0.8-1.3) mg/dL Glucose 92 (75-100) mg/dL Calcium 8.3 L (8.4-10.2) mg/dL Adrenal panel 04/09/21 Range/Units 04:27 Sodium 132 L (137-145) mmol/L Potassium 3.4 L (3.6-5.0) mmol/L Chloride 96.3 L (98-107) mmol/L Carbon Dioxide 25 (22-30) mmol/L BUN 16 (9-20) mg/dL Creatinine 1.0 (0.8-1.3) mg/dL Glucose 92 (75-100) mg/dL Calcium 8.3 L (8.4-10.2) mg/dL Total Bilirubin 0.50 (0.1-1.2) mg/dL AST 21 (5-40) units/L ALT 11 (7-56) units/L Alkaline Phosphatase 82 (35-129) units/L Total Protein 9.1 H (6.3-8.2) g/dL Albumin 3.2 L (3.9-5) g/dL - Imaging CT scan - abdomen: report reviewed CT scan - pelvis: report reviewed Assessment and Plan - Patient Problems (1) Right lower quadrant pain Current Visit: Yes Status: Acute Plan to address problem: 1) Pain is improving and pt is hungry. In light of normal abd exam, normal WBC count, improving symptoms and equivocal CT findings, I doubt he has appendicitis. 2) Will order CLD and f/u CBC in the am.
[2021-04-10 06:09] LABS: Hematocrit 33.8 % (35.5-45.6); Hemoglobin 11.7 gm/dl (11.8-15.2); Mean Corpuscular HGB Conc 35 % (32-34); Mean Corpuscular Volume 83 fl (84-94); Platelet Count 189 K/mm3 (140-440); Red Blood Count 4.05 M/mm3 (3.65-5.03); Red Cell Distribution Width 13.9 % (13.2-15.2)
[2021-04-10 06:30] LABS: Blood Urea Nitrogen 7 mg/dL (9-20); Calcium 7.6 mg/dL (8.4-10.2); Hemolysis Index 21
[2021-04-10 06:42] LABS: BUN/Creatinine Ratio 10
[2021-04-10] MEDS: PIPERACILLIN/TAZOBACTAM 3.375 3.375 GM/50 ML BAG IV SCH ×3 (07:12→18:45)
[2021-04-10] MEDS: SODIUM CHLORIDE 0.9% 1000 ML 1,000 ML IV SCH (09:50)
[2021-04-10] MEDS: EMTRICITABINE 200 MG CAP PO SCH (09:51)
[2021-04-10] MEDS: DOLUTEGRAVIR 50 MG TAB PO SCH (09:51)
[2021-04-10] MEDS: TENOFOVIR 300 MG TAB PO SCH (09:51)
[2021-04-10] MEDS ORDERED: DOLUTEGRAVIR 50 MG, TENOFOVIR 300 MG, EMTRICITABINE 200 MG PO SCH (10:00)
[2021-04-10 11:48] LABS: Band Neutrophils # (Manual) 0.2 K/mm3; Total Cells Counted 100
[2021-04-10 11:49] LABS: Platelet Estimate Consistent w Auto; RBC Morphology Normal
--- NOTE | 2021-04-10 13:22 | Progress Note ---
Assessment and Plan - Patient Problems (1) Right lower quadrant pain Current Visit: Yes Status: Acute Plan to address problem: 1) Improving. 2) FLD 3) Continue Zosyn Subjective Date of service: 04/10/21 Patient Reports: Positive: no new complaints, feels better, tolerating liquids well Objective Vital Signs - 12hr 04/10/21 04/10/21 05:15 10:00 Temperature 100.8 F H 99.3 F Pulse Rate 94 H 74 Respiratory 18 20 Rate Blood Pressure 119/77 Blood Pressure 116/79 [Right] O2 Sat by Pulse 93 96 Oximetry - Abdomen PM_46_[id number] 4, PM_46_EXABD1 6, PM_46_EXABD1 8 Hernia: none - Labs 04/10/21 05:32 04/10/21 05:32 Diabetes panel 04/10/21 Range/Units 05:32 Sodium 134 L (137-145) mmol/L Potassium 3.6 (3.6-5.0) mmol/L Chloride 101.9 (98-107) mmol/L Carbon Dioxide 20 L (22-30) mmol/L BUN 7 L (9-20) mg/dL Creatinine 0.7 L (0.8-1.3) mg/dL Glucose 73 L (75-100) mg/dL Calcium 7.6 L (8.4-10.2) mg/dL Calcium panel 04/10/21 Range/Units 05:32 Calcium 7.6 L (8.4-10.2) mg/dL Pituitary panel 04/10/21 Range/Units 05:32 Sodium 134 L (137-145) mmol/L Potassium 3.6 (3.6-5.0) mmol/L Chloride 101.9 (98-107) mmol/L Carbon Dioxide 20 L (22-30) mmol/L BUN 7 L (9-20) mg/dL Creatinine 0.7 L (0.8-1.3) mg/dL Glucose 73 L (75-100) mg/dL Calcium 7.6 L (8.4-10.2) mg/dL Adrenal panel 04/10/21 Range/Units 05:32 Sodium 134 L (137-145) mmol/L Potassium 3.6 (3.6-5.0) mmol/L Chloride 101.9 (98-107) mmol/L Carbon Dioxide 20 L (22-30) mmol/L BUN 7 L (9-20) mg/dL Creatinine 0.7 L (0.8-1.3) mg/dL Glucose 73 L (75-100) mg/dL Calcium 7.6 L (8.4-10.2) mg/dL
--- NOTE | 2021-04-10 14:04 | Progress Note ---
Assessment and Plan Assessment and plan: 31-year-old -[place] male with past medical history of HIV presents with abdominal pain secondary to early acute appendicitis Early acute appendicitis Report of the CT of the abdomen reviewed General surgery consulted, no surgical intervention at this time Patient started on Zosyn antibiotics Pain control Zofran for nausea IV normal saline fluids Fever of unknown origin PUI Covid, no signs of acute infection or respiratory distress Sepsis secondary to intra-abdominal infection Blood cultures negative to date Urine cultures pending Fluid boluses given Zosyn antibiotics Hypovolemic hyponatremia IV normal saline Hypochloremia Secondary to nausea and vomiting IV normal saline Hypoglycemia Converted patient to full liquid diet Continue to monitor Hypoglycemia protocol as needed Hypocalcemia Delusional? Supplement with calcium carbonate Hypokalemia Replete as needed Chronic HIV infection Continue Biktarvy medications CODE STATUS: Full DVT prophylaxis: SCDs Disposition: Continue monitoring for early appendicitis, advance diet as tolerated. History Interval history: 04/10/2021: Patient febrile overnight, abdominal pain has ceased. Patient want to advance diet, general surgery has advance diet to full liquid diet. Covid test is pending, patient placed on precautions. Hospitalist Physical - Physical exam Narrative exam: General appearance: no acute distress, well-nourished EENT: PERRL, EOM intact, hearing intact, clear oral mucosa Neck: Present: supple, normal ROM Respiratory: bilateral CTA, negative: rales, rhonchi, wheezing Cardiovascular: Regular rate/rhythm, Normal S1 & S2. No gallop, rub Extremities: no ischemia, No edema, normal temperature, normal color, Full ROM Abdominal: No tenderness in right lower quadrant with deep palpation. Bowel sounds normal. Nondistended Integumentary: Present: clear, warm, dry no wounds, no erythema noted Psychiatric: appropriate mood/affect, intact judgment & insight Neurologic: CNII-XII intact, moves all extremities, no sensory or motor abnormalities - Constitutional Vitals: Temp Pulse Resp BP Pulse Ox 99.3 F 74 20 116/79 96 04/10/21 10:00 04/10/21 10:00 04/10/21 10:00 04/10/21 10:00 04/10/21 10:00 Results - Labs CBC & Chem 7: 04/10/21 05:32 04/10/21 05:32 Labs: Laboratory Last Values WBC 7.5 K/mm3 (4.5-11.0) 04/10/21 05:32 RBC 4.05 M/mm3 (3.65-5.03) 04/10/21 05:32 Hgb 11.7 gm/dl (11.8-15.2) L 04/10/21 05:32 Hct 33.8 % (35.5-45.6) L 04/10/21 05:32 MCV 83 fl (84-94) L 04/10/21 05:32 MCH 29 pg (28-32) 04/10/21 05:32 MCHC 35 % (32-34) H 04/10/21 05:32 RDW 13.9 % (13.2-15.2) 04/10/21 05:32 Plt Count 189 K/mm3 (140-440) 04/10/21 05:32 Add Manual Diff Complete 04/10/21 05:32 Total Counted 100 04/10/21 05:32 Seg Neuts % (Manual) 80.0 % (40.0-70.0) H 04/10/21 05:32 Band Neutrophils % 2.0 % 04/10/21 05:32 Lymphocytes % (Manual) 11.0 % (13.4-35.0) L 04/10/21 05:32 Monocytes % (Manual) 5.0 % (0.0-7.3) 04/10/21 05:32 Eosinophils % (Manual) 2.0 % (0.0-4.3) 04/10/21 05:32 Nucleated RBC % Not Reportable 04/10/21 05:32 Seg Neutrophils # Man 6.0 K/mm3 (1.8-7.7) 04/10/21 05:32 Band Neutrophils # 0.2 K/mm3 04/10/21 05:32 Lymphocytes # (Manual) 0.8 K/mm3 (1.2-5.4) L 04/10/21 05:32 Abs React Lymphs (Man) 0.0 K/mm3 04/10/21 05:32 Monocytes # (Manual) 0.4 K/mm3 (0.0-0.8) 04/10/21 05:32 Eosinophils # (Manual) 0.2 K/mm3 (0.0-0.4) 04/10/21 05:32 Basophils # (Manual) 0.0 K/mm3 (0.0-0.1) 04/10/21 05:32 Metamyelocytes # 0.0 K/mm3 04/10/21 05:32 Myelocytes # 0.0 K/mm3 04/10/21 05:32 Promyelocytes # 0.0 K/mm3 04/10/21 05:32 Blast Cells # 0.0 K/mm3 04/10/21 05:32 WBC Morphology Not Reportable 04/10/21 05:32 Hypersegmented Neuts Not Reportable 04/10/21 05:32 Hyposegmented Neuts Not Reportable 04/10/21 05:32 Hypogranular Neuts Not Reportable 04/10/21 05:32 Smudge Cells Not Reportable 04/10/21 05:32 Toxic Granulation Not Reportable 04/10/21 05:32 Toxic Vacuolation Not Reportable 04/10/21 05:32 Dohle Bodies Not Reportable 04/10/21 05:32 Pelger-Huet Anomaly Not Reportable 04/10/21 05:32 Aleena Rods Not Reportable 04/10/21 05:32 Platelet Estimate Consistent w auto 04/10/21 05:32 Clumped Platelets Not Reportable 04/10/21 05:32 Plt Clumps, EDTA Not Reportable 04/10/21 05:32 Large Platelets Not Reportable 04/10/21 05:32 Giant Platelets Not Reportable 04/10/21 05:32 Platelet Satelliting Not Reportable 04/10/21 05:32 Plt Morphology Comment Not Reportable 04/10/21 05:32 RBC Morphology Normal 04/10/21 05:32 Dimorphic RBCs Not Reportable 04/10/21 05:32 Polychromasia Not Reportable 04/10/21 05:32 Hypochromasia Not Reportable 04/10/21 05:32 Poikilocytosis Not Reportable 04/10/21 05:32 Anisocytosis Not Reportable 04/10/21 05:32 Microcytosis Not Reportable 04/10/21 05:32 Macrocytosis Not Reportable 04/10/21 05:32 Spherocytes Not Reportable 04/10/21 05:32 Pappenheimer Bodies Not Reportable 04/10/21 05:32 Sickle Cells Not Reportable 04/10/21 05:32 Target Cells Not Reportable 04/10/21 05:32 Tear Drop Cells Not Reportable 04/10/21 05:32 Ovalocytes Not Reportable 04/10/21 05:32 Helmet Cells Not Reportable 04/10/21 05:32 [place] Bodies Not Reportable 04/10/21 05:32 Bells Rings Not Reportable 04/10/21 05:32 [place] Cells Not Reportable 04/10/21 05:32 Bite Cells Not Reportable 04/10/21 05:32 Crenated Cell Not Reportable 04/10/21 05:32 Elliptocytes Not Reportable 04/10/21 05:32 Acanthocytes (Spur) Not Reportable 04/10/21 05:32 Rouleaux Not Reportable 04/10/21 05:32 Hemoglobin C Crystals Not Reportable 04/10/21 05:32 Schistocytes Not Reportable 04/10/21 05:32 Malaria parasites Not Reportable 04/10/21 05:32 Matias Bodies Not Reportable 04/10/21 05:32 Hem Pathologist Commnt No 04/10/21 05:32 PT 14.3 Sec. (12.2-14.9) 04/09/21 04:27 INR 1.13 (0.87-1.13) 04/09/21 04:27 VBG pH 7.391 (7.320-7.420) 04/09/21 04:27 Sodium 134 mmol/L (137-145) L 04/10/21 05:32 Potassium 3.6 mmol/L (3.6-5.0) 04/10/21 05:32 Chloride 101.9 mmol/L (98-107) 04/10/21 05:32 Carbon Dioxide 20 mmol/L (22-30) L 04/10/21 05:32 Anion Gap 16 mmol/L 04/10/21 05:32 BUN 7 mg/dL (9-20) L 04/10/21 05:32 Creatinine 0.7 mg/dL (0.8-1.3) L 04/10/21 05:32 Estimated GFR > 60 ml/min 04/10/21 05:32 BUN/Creatinine Ratio 10 % 04/10/21 05:32 Glucose 73 mg/dL (75-100) L 04/10/21 05:32 Lactic Acid 0.60 mmol/L (0.7-2.0) L 04/09/21 14:13 Calcium 7.6 mg/dL (8.4-10.2) L 04/10/21 05:32 Total Bilirubin 0.50 mg/dL (0.1-1.2) 04/09/21 04:27 AST 21 units/L (5-40) 04/09/21 04:27 ALT 11 units/L (7-56) 04/09/21 04:27 Alkaline Phosphatase 82 units/L (35-129) 04/09/21 04:27 Total Protein 9.1 g/dL (6.3-8.2) H 04/09/21 04:27 Albumin 3.2 g/dL (3.9-5) L 04/09/21 04:27 Albumin/Globulin Ratio 0.5 % 04/09/21 04:27 Urine Color Yellow (Yellow) 04/09/21 08:40 Urine Turbidity Clear (Clear) 04/09/21 08:40 Urine pH 6.0 (5.0-7.0) 04/09/21 08:40 Ur Specific [place] > 1.059 (1.003-1.030) H 04/09/21 08:40 Urine Protein <15 mg/dl mg/dL (Negative) 04/09/21 08:40 Urine Glucose (UA) Neg mg/dL (Negative) 04/09/21 08:40 Urine Ketones 20 mg/dL (Negative) 04/09/21 08:40 Urine Blood Neg (Negative) 04/09/21 08:40 Urine Nitrite Neg (Negative) 04/09/21 08:40 Urine Bilirubin Neg (Negative) 04/09/21 08:40 Urine Urobilinogen < 2.0 mg/dL (<2.0) 04/09/21 08:40 Ur Leukocyte Esterase Neg (Negative) 04/09/21 08:40 Urine WBC (Auto) 1.0 /HPF (0.0-6.0) 04/09/21 08:40 Urine RBC (Auto) 2.0 /HPF (0.0-6.0) 04/09/21 08:40 Urine Mucus Few /HPF 04/09/21 08:40 Microbiology: Microbiology 04/09/21 04:27 Peripheral/Venous Blood Culture - Preliminary NO GROWTH AFTER 24 HOURS 04/09/21 04:23 Peripheral/Venous Blood Culture - Preliminary NO GROWTH AFTER 24 HOURS [place]/IV: Voiding Method Toilet Active Medications - Current Medications Current Medications: Generic Name Dose Route Start Last Admin Trade Name Freq PRN Reason Stop Dose Admin Acetaminophen 650 mg 04/09/21 08:00 04/10/21 07:12 Acetaminophen 325 Mg Tab PO 650 mg Q4H PRN Administration Pain MILD(1-3)/Fever >100.5/LEMUS Emtricitabine 200 mg 04/10/21 10:00 04/10/21 09:51 Emtricitabine 200 Mg Cap PO 200 mg QDAY MARIO ALBERTO Administration Hydromorphone HCl 0.5 mg 04/09/21 08:00 Hydromorphone 1 Mg/1 Ml Inj IV Q3H PRN Pain , Severe (7-10) Sodium Chloride 1,000 mls @ 100 mls/hr 04/09/21 08:00 04/10/21 09:50 Nacl 0.9% 1000 Ml IV 100 mls/hr DIRECT MARIO ALBERTO Administration Piperacillin Sod/Tazobactam Sod 3.375 gm in 50 mls @ 100 mls/hr 04/09/21 18:00 04/10/21 07:12 Zosyn/Ns 3.375gm/50ml IV 100 mls/hr Q6H MARIO ALBERTO Administration Protocol Morphine Sulfate 2 mg 04/09/21 08:00 04/09/21 22:59 Morphine 2 Mg/1 Ml Inj IV 2 mg Q4H PRN Administration Pain, Moderate (4-6) Naloxone HCl 0.1 mg 04/09/21 08:00 Naloxone 0.4 Mg/1 Ml Inj IV Q2MIN PRN Res Rate </= 8 or 02 SAT < 92% Ondansetron HCl 4 mg 04/09/21 08:00 Ondansetron 4 Mg/2 Ml Inj IV Q8H PRN Nausea And Vomiting Sodium Chloride 10 ml 04/09/21 10:00 04/09/21 23:00 Sodium Chloride 0.9% 10 Ml Flush Syringe IV 10 ml BID MARIO ALBERTO Administration Sodium Chloride 10 ml 04/09/21 07:42 Sodium Chloride 0.9% 10 Ml Flush Syringe IV PRN PRN LINE FLUSH Tenofovir Disoproxil Fumarate 300 mg 04/10/21 10:00 04/10/21 09:51 Tenofovir 300 Mg Tab PO 300 mg QDAY MARIO ALBERTO Administration
[2021-04-10] MEDS ORDERED: DEXTROSE 50% IN WATER (25GM) 50 ML SYRINGE IV PRN (14:06)
[2021-04-10] MEDS ORDERED: SODIUM CHLORIDE 0.9% 1000 ML 1,000 ML IV SCH (14:15)
[2021-04-10] MEDS: CALCIUM CARBONATE 648 MG TAB PO SCH (18:46)
[2021-04-11] MEDS: PIPERACILLIN/TAZOBACTAM 3.375 3.375 GM/50 ML BAG IV SCH ×2 (00:26→05:52)
--- NOTE | 2021-04-11 08:55 | Discharge Summary ---
Providers - Providers Date of Admission: 04/09/21 06:29 Date of discharge: 04/11/21 Attending physician: TOSHIA CHANDLER MD 04/09/21 06:29 Consult to Physician [CONS] Routine Comment: Consulting Provider: MARGARETTE DEE Physician Instructions: Reason For Exam: api Primary care physician: LIVING MANAGER Hospitalization Reason for admission: acute abdominal pain/acute appendicitis Condition: Stable Hospital course: Assessment and plan: 31-year-old -Stateless male with past medical history of HIV presents with abdominal pain secondary to early acute appendicitis. Within 24 hours, all pain subsided, general surgery was consulted and decided not to proceed with appendectomy. Patient continued on IV antibiotics and improved, tolerating diet, discharged home on oral antibiotics. Early acute appendicitis Report of the CT of the abdomen reviewed General surgery consulted, no surgical intervention at this time Patient started on Zosyn antibiotics, discharged on Levaquin for 1 week Pain control Zofran for nausea IV normal saline fluids Patient follow-up with general surgery 1 week Fever of unknown origin Resolved, Covid negative, no signs of acute infection or respiratory distress Sepsis secondary to intra-abdominal infection Blood cultures negative to date Urine cultures pending Fluid boluses given Hypovolemic hyponatremia IV normal saline Hypochloremia Secondary to nausea and vomiting IV normal saline Hypoglycemia Converted patient to full liquid diet Continue to monitor Hypoglycemia protocol as needed Hypocalcemia Most likely dilution etiology Supplement with calcium carbonate Hypokalemia Replete as needed Chronic HIV infection Continue Biktarvy medications Disposition: DC- TO HOME OR SELFCARE Final Discharge Diagnosis (Prints w/discharge instructions): Unequivocal acute appendicitis. Fever of unknown origin. Sepsis secondary to intra-abdominal infection. Hypovolemic hyponatremia. Hypochloremia. Hyperglycemia. Hypocalcemia. Hypokalemia. Chronic HIV infection Time spent for discharge: 35 min Core Measure Documentation - Palliative Care Palliative Care/ Comfort Measures: Not Applicable - Core Measures Any of the following diagnoses?: none Exam - Physical Exam Narrative exam: General appearance: no acute distress, well-nourished EENT: PERRL, EOM intact, hearing intact, clear oral mucosa Neck: Present: supple, normal ROM Respiratory: bilateral CTA, negative: rales, rhonchi, wheezing Cardiovascular: Regular rate/rhythm, Normal S1 & S2. No gallop, rub Extremities: no ischemia, No edema, normal temperature, normal color, Full ROM Abdominal: No tenderness in right lower quadrant with deep palpation. Bowel sounds normal. Nondistended Integumentary: Present: clear, warm, dry no wounds, no erythema noted Psychiatric: appropriate mood/affect, intact judgment & insight Neurologic: CNII-XII intact, moves all extremities, no sensory or motor abnormalities - Constitutional Vitals: Temp Pulse Resp BP Pulse Ox 98.2 F 62 16 119/79 99 04/11/21 04:17 04/11/21 04:17 04/11/21 04:17 04/11/21 04:17 04/11/21 04:17 Plan Activity: no restrictions Diet: regular Care Plan Goals: Outlined below Plan of Treatment: Continue taking Levaquin for the next 7 days, follow-up with general surgery, Dr. Dee. Health Concerns: If you have nausea vomiting fevers chills and abdominal pain, please return to the hospital immediately for reevaluation. Follow up with: PRIMARY CARE, [Primary Care Provider] - 7 Days MARGARETTE DEE MD [Staff Physician] - 7 Days Prescriptions: levoFLOXacin [Levaquin] 750 mg PO QDAY #7 tablet
[2021-04-11] MEDS: EMTRICITABINE 200 MG CAP PO SCH (10:06)
[2021-04-11] MEDS: DOLUTEGRAVIR 50 MG TAB PO SCH (10:06)
[2021-04-11] MEDS: TENOFOVIR 300 MG TAB PO SCH (10:06)
[2021-04-11] MEDS: CALCIUM CARBONATE 648 MG TAB PO SCH (10:06)
[2021-04-11 10:21] VITALS: BP 110/78
== END 2021-04-11 13:00 | disposition home or self-care (01) ==
LOC: ED 02:25 → 3A 06:29
PROVIDERS: ADMIT Hospitalist; ATTEND Family Medicine
DX: A41.9 Sepsis, unspecified organism (principal); Z20.822 Contact with and (suspected) exposure to COVID-19; K35.80 Unspecified acute appendicitis; R50.9 Fever, unspecified; E87.1 Hypo-osmolality and hyponatremia; E87.8 Other disorders of electrolyte and fluid balance, not elsewhere classified; E87.6 Hypokalemia; E16.2 Hypoglycemia, unspecified; E83.51 Hypocalcemia; Z21 Asymptomatic human immunodeficiency virus [HIV] infection status
CPT/HCPCS: 36415; 71045; 74177; 80048; 80053; 81001; 82140; 82805; 85025; 85610; 87040; 87086; 93005; 96361; 96365; 96366; 96367; 96375; 96376; 99291; G0378; J0330; J1100; J2270; J2405; J2543; J2704; J3010; J3480; J7030; J7040; Q9967; U0003; 85007